=== PATIENT | female | born 1965 | race Caucasian/White ===

== ENCOUNTER 2021-07-07 14:06 | Outpatient (CLI) | payer BC | END 2021-07-07 14:07 | disposition home or self-care (01) | LOC: BICMAMMO 14:06 | PROVIDERS: ATTEND Family Medicine | DX: Z12.31 Encounter for screening mammogram for malignant neoplasm of breast (principal); Z80.3 Family history of malignant neoplasm of breast | CPT/HCPCS: 77063; 77067 ==

== ENCOUNTER 2022-02-20 10:15 | Outpatient (CLI) | payer BC | END 2022-02-20 10:16 | disposition home or self-care (01) | LOC: BICMAMMO 10:15 | PROVIDERS: ATTEND Nurse Practitioner | DX: N63.0 Unspecified lump in unspecified breast (principal); R92.2 Inconclusive mammogram | CPT/HCPCS: 77066; G0279 ==